=== PATIENT | female | born 1965 | race Asian ===

== ENCOUNTER 2022-08-02 14:56 | Outpatient (CLI) | payer OTHER | END 2022-08-02 14:57 | disposition home or self-care (01) | LOC: CSHMRI 14:56 | PROVIDERS: ATTEND Orthopaedic Surgery | DX: M54.6 Pain in thoracic spine (principal) | CPT/HCPCS: 72146 ==

== ENCOUNTER 2023-03-04 12:53 | Outpatient (CLI) | payer OTHER | END 2023-03-04 12:54 | disposition home or self-care (01) | LOC: CSHRAD 12:53 | PROVIDERS: ATTEND Family Medicine | DX: R07.89 Other chest pain (principal) | CPT/HCPCS: 71046 ==